=== PATIENT | female | born 2000 | race Caucasian/White ===

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

== ENCOUNTER 2023-04-28 13:15 | Emergency (ER) | payer BC, SELFPAY ==
[2023-04-28 13:27] VITALS: BP 118/63; PULSE 93; RESP 16; TEMP 37.4; O2SAT 100
--- NOTE | 2023-04-28 14:16 | ED.GENADULT ---
HPI - General Adult General Chief complaint: Back Pain/Injury <Manju Martin APRN - Last Filed: 04/28/23 15:03> Stated complaint: UTI <Manju Martin APRN - Last Filed: 04/28/23 15:03> Time Seen by Provider: 04/28/23 17:34 <Manju Martin APRN - Last Filed: 04/28/23 15:03> Source: patient and family (mother) <Monserrat Lynch MD - Last Filed: 04/29/23 09:03> Mode of arrival: ambulatory <Monserrat Lynch MD - Last Filed: 04/29/23 09:03> Limitations: no limitations <Monserrat Lynch MD - Last Filed: 04/29/23 09:03> History of Present Illness HPI narrative: Cecille Correa is a 22 y/o female who presents with reports of dysuria for about 6 days, blood in her urine and started to have lower back pain for two days. Today she has felt nauseated no vomiting. Reports chills/fevers for the past two days. Denies abdominal pain. Positive Right CVA tenderness <Manju Martin APRN - Last Filed: 04/28/23 15:03> Cecille Correa is a 22 y/o female who presents with reports of right flank/back pain for 4 days and symptoms of dysuria/urgency/frequency for 5 days. She did have blood in her urine but this has cleared. The dysuria is also improving. She felt feverish and chilled but did not record a temperature. Today she felt nauseated and had 2 episodes of vomiting but the nausea is better. Has been trying to maintain hydration. Patient had a hsitory of UTIs and a bladder infection as a child but they were uncomplicated/did not require stents or other surgical intervention. (Also has an allergy to checkpeas) <Monserrat Lynch MD - Last Filed: 04/29/23 09:03> Related Data Home medications: Home Medications Medication Instructions Recorded Confirmed loratadine 10 mg tablet (Claritin) 10 mg PO DAILY 02/18/20 03/11/23 levothyroxine 100 mcg tablet 100 mcg PO DAILY 11/04/20 03/11/23 fluoxetine 20 mg capsule 20 mg PO DAILY 03/11/23 03/11/23 lamotrigine 25 mg tablet 25 mg PO DAILY 03/11/23 03/11/23 methylphenidate HCl 10 mg 10 mg PO DAILY 03/11/23 03/11/23 capsule,extended release (40-60) sprinkle <Manju Kidd October, Last Filed: 04/28/23 15:03> Allergies/adverse reactions: Allergies Allergy/AdvReac Type Severity Reaction Status Date / Time prednisolone Allergy Severe Rash Verified 03/11/23 08:13 <Manju Kidd October, - Last Filed: 04/28/23 15:03> [facility] Past Medical History Medical History: Medical History (Updated 04/29/23 @ 08:59 by Monserrat Lynch MD) Anxiety Depression UTI (urinary tract infection) as an <Manju Kidd October, Last Filed: 04/28/23 15:03> Surgical History Surgical History: Surgical History (Updated 03/11/23 @ 08:17 by Tonja Chambers MA) H/O thyroidectomy [place] teeth extracted <Manju Kidd October, Last Filed: 04/28/23 15:03> Family History Family History: Family History Sibling Diabetes mellitus Acute myocardial infarction Grandparent Hypertension High cholesterol Acute myocardial infarction <Manju Kidd October, Last Filed: 04/28/23 15:03> Social History Social History: Social History (Updated 03/11/23 @ 08:17 by Tonja Chambers MA) Smoking status: Never smoker Alcohol intake: never Substance use: never Lack of Transportation: No Lack of Food: Never True Current Housing: I Have Housing Concerned About Future Housing: No Difficulty Paying Gas/Electric Bills: No Difficulty Paying for Meds: No Currently Unemployed: No Education: High School Diploma/GED Difficulty w/ Childcare or Family Care: No Living arrangements: with roommate(s) Occupation/Education: student Gender identity (if verbalized by the patient): Female Sexual Orientation (if Verbalized by the Patient): Straight or Heterosexual <Manju Kidd October, - Last Filed: 04/28/23 15:03> Exam Const: General: healthy appearing and alert; No conf
[2023-04-28 14:36] LABS: Appearance Urine Clear (Clear); Bacteria Urine 1+ /hpf; Bilirubin Urine Negative (Negative); Color Urine Yellow (Yellow); Glucose Urine UA Negative (Negative); Ketones Urine 1+ mg/dL (Negative); Leukocyte Esterase Ur 3+ LEU/UL (Negative); Nitrate Urine Negative (Negative); Non Pathogenic Casts 0-2; Protein Urine Trace mg/dL (Negative); RBC Urine 0-2 /hpf (0-2); Squamous Epithelial Cell Urine None seen /hpf (Few); Urobilinogen Urine 0.2 mg/dL (<2.0); WBC Urine >100 /hpf
[2023-04-28 14:42] LABS: Add Urine Microscopic? YES
[2023-04-28 15:10] LABS: Basophils Percent Auto 0.4 % (0.2-1.2); Eosinophils Percent Auto 0.3 % (0-4.4); Hematocrit 34.5 % (37.0-47.0); Hemoglobin 10.9 g/dL (12.0-15.0); Immature Granulocyte Absolute 0.04 K/mm3 (0.00-0.031); Immature Granulocyte Percent A 0.4 % (0-0.5); Lymphocytes Absolute Auto 0.63 K/mm3 (0.9-3.2); Lymphocytes Percent Auto 6.1 % (18.3-44.2); Mean Corpuscular HGB Conc 31.6 g/dl (32-36); Mean Corpuscular Hemoglobin 26.8 pg (26-34); Mean Corpuscular Volume 84.8 fl (80-100); Mean Platelet Volume 9.8 fl (7.4-10.4); Monocytes Absolute Auto 0.7 K/mm3 (0.1-0.6); Monocytes Percent Auto 6.5 % (2.6-8.5); Neutrophils Absolute Auto 8.8 K/mm3 (1.3-6.7); Neutrophils Percent Auto 86.3 % (45.5-73.1); Platelet Count Result 204 k/mm3 (150-375); Red Blood Count 4.07 M/mm3 (4.2-5.4); Red Cell Distribution Width 13.8 % (11.5-14.5); White Blood Count 10.3 K/mm3 (4.5-10.0)
[2023-04-28 15:18] LABS: Pregnancy On Board Control Positive; Urine Pregnancy Test Negative
[2023-04-28 15:21] LABS: Anion Gap 7 mmol/L (8-16); Blood Urea Nitrogen 10 mg/dL (7-17); Calcium 9.3 mg/dL (8.4-10.2); Carbon Dioxide 26 mmol/L (22-30); Chloride 99 mmol/L (98-107); Estimated CRCL calculation 86 ml/min; Estimated Glomerular Filt Rate > 60; Glucose 167 mg/dL (65-110); Potassium 4.1 mmol/L (3.4-5.0); Sodium 132 mmol/L (137-145)
[2023-04-28 17:59] VITALS: BP 107/55; PULSE 88; RESP 20; TEMP 37.5; O2SAT 100
== END 2023-04-28 18:01 | disposition home or self-care (01) ==
PROVIDERS: Emergency Medicine; Nurse Practitioner Family; Emergency Provider Student in an Organized Health Care Education/Training Program
DX: N12 Tubulo-interstitial nephritis, not specified as acute or chronic (principal); E89.0 Postprocedural hypothyroidism; F41.9 Anxiety disorder, unspecified; F32.A Depression, unspecified; Z87.440 Personal history of urinary (tract) infections
CPT/HCPCS: 36415; 80048; 81001; 81025; 85025; 87077; 87086; 87186; 99283